=== PATIENT | male | born 1975 | race Caucasian/White ===

== ENCOUNTER 2024-05-13 09:50 | Observation (INO) ==
[2024-05-13 10:12] VITALS: BMI 28.0
[2024-05-13] MEDS ORDERED: OMNIPAQUE 350 mg/mL 100 mL BTL 100 ML ONE (10:25)
[2024-05-13] MEDS: NS 1,000 ML IV 1,000 ML IV ONE ×2 (10:29→12:57)
[2024-05-13] MEDS: ZOFRAN INJ 4 MG VIAL IVP ONE ×2 (10:29→12:56)
[2024-05-13] MEDS: MORPHINE SULFATE INJ 4 MG IVP ONE ×2 (10:30→13:02)
[2024-05-13 10:32] LABS: BASOPHILS % (AUTO) 0.3 % (0.2-1.0); EOSINOPHILS % (AUTO) 0.1 % (0.9-2.9); HEMATOCRIT 48.6 % (42.0-54.0); HEMOGLOBIN 16.7 g/dL (13.5-18.0); LYMPHOCYTES # (AUTO) 1.4 X10^3/uL (1.3-2.9); LYMPHOCYTES % (AUTO) 8.7 % (21.0-51.0); MEAN CORPUSCULAR HEMOGLOBIN 30.8 pg (27.0-34.0); MEAN CORPUSCULAR HGB CONC 34.4 g/dL (33.0-35.0); MEAN CORPUSCULAR VOLUME 89.5 fL (80.0-100.0); MEAN PLATELET VOLUME 8.5 fL (7.4-11.0); MONOCYTES # (AUTO) 0.9 x10^3/uL (0.3-0.8); MONOCYTES % (AUTO) 5.2 % (0.0-13.0); NEUTROPHILS # (AUTO) 14.2 x10^3/uL (2.2-4.8); NEUTROPHILS % (AUTO) 85.7 % (42.0-75.0); PLATELET COUNT 336 X10^3/uL (150.0-450.0); RED BLOOD COUNT 5.43 X10^6/uL (4.7-6.0); WHITE BLOOD COUNT 16.6 X10^3/uL (3.6-10.0)
[2024-05-13 10:55] LABS: ALANINE AMINOTRANSFERASE 48 Units/L (12-78); ALBUMIN 4.5 g/dL (3.4-5.0); ALKALINE PHOSPHATASE 82 Units/L (46-116); ASPARTATE AMINO TRANSFERASE 24 Units/L (15-37); BLOOD UREA NITROGEN 8 mg/dL (7-18); CALCIUM 9.6 mg/dL (8.5-10.1); CARBON DIOXIDE 31.4 mmol/L (21-32); CHLORIDE 102 mmol/L (98-107); COR NA(FOR HYPERGLY) 143 mmol/L (136-145); CREATININE 1.11 mg/dL (0.70-1.30); GLUCOSE 140 mg/dL (65-99); LIPASE 33 Units/L (16-77); POTASSIUM 3.8 mmol/L (3.5-5.1); SODIUM 142 mmol/L (136-145); TOTAL PROTEIN 8.3 g/dL (6.4-8.2); eGFR NON BLACK RACES > 60 (>60)
[2024-05-13 11:50] LABS: BILIRUBIN,URINE NEGATIVE (NEGATIVE); BLOOD/HEMOGLOBIN,URINE 2+ (NEGATIVE); GLUCOSE, URINE NEGATIVE (NEGATIVE); KETONES,URINE 2+ (NEGATIVE); LEUKOCYTE ESTERASE ,URINE NEGATIVE (NEGATIVE); NITRITES,URINE NEGATIVE (NEGATIVE); PROTEIN,URINE 1+ (NEGATIVE); UROBILINOGEN,URINE NORMAL (NORMAL)
[2024-05-13 12:01] LABS: APPEARANCE,URINE CLEAR (CLEAR); BACTERIA,URINE TRACE /HPF (NEGATIVE); COLOR,URINE STRAW (YELLOW); RBC,URINE NONE SEEN /HPF (0-3); SQUAMOUS EPITHELIAL CELL,UR NEGATIVE /HPF (NEGATIVE)
--- NOTE | 2024-05-13 12:11 | CT ---
EXAM: ABDCMEN/PELVIS WITH CON HISTORY: Pt states he started having abdominal pain Chuy, periumbilical in location, doesn't radiate, rectal bleeding started last night; COMPARISON: None. TECHNIQUE: Following the intravenous administration of iodinated contrast, spiral CT imaging was performed throu gh the abdomen and pelvis and axial, coronal, and sagittal CT images were generated. FINDINGS: There is mild basilar atelectasis and no pleural effusion. The heart size is normal. The liver is n ormal. The gallbladder, pancreas, spleen, adrenal glands are normal. Both kidneys are normal in siz e and enhancement. There are some small nonobstructing stones in the right kidney. There is no hydr onephrosis or hydroureter. The urinary bladder is normal. The prostate measures 4.3 cm in diameter. The stomach and small bowel loops are normal. The appendix is abnormally dilated and fluid-filled with diameter measuring up to 1.4 cm. There is fatty infiltration of the moser of the large bowel. This is non-specific and can be seen with autoimmune GI tract disease. There are diverticula in the sigmoid colon but no diverticulitis. IMPRESSION: 1. Acute appendicitis. 2. Question autoimmune or infectious large bowel disease. 3. Mild diverticulosis of the distal colon without diverticulitis. 4. Nonobstructing stones in the right kidney. THIS IS AN ELECTRONICALLY VERIFIED FINAL REPORT 05/13/2024 12:08 PM - Electronically signed by Jose Prajapati MD
[2024-05-13] MEDS: ZOSYN VIAL 3.375 GRAMS 3.375 G in NS 100 ML IV 100 ML IV ONE (12:49)
--- NOTE | 2024-05-13 12:49 | EKG ---
Test Reason : Dyspnea Blood Pressure : */* mmHG Vent. Rate : 52 BPM Atrial Rate : 52 BPM P-R Int : 136 ms QRS Dur : 88 ms QT Int : 450 ms P-R-T Axes : 37 19 31 degrees QTc Int : 418 ms Sinus bradycardia Minimal voltage criteria for LVH, may be normal variant ( R in aVL ) Borderline ECG No previous ECGs available Confirmed by Ziggy Mills MD ([id number]) on 05/13/2024 4:18:36 PM Referred By: Confirmed By: Ziggy Mills MD
[2024-05-13] MEDS: DILAUDID INJ IVP ONE (12:56)
[2024-05-13] MEDS: NS 1,000 ML IV 1,000 ML IV PRN (13:00)
--- NOTE | 2024-05-13 13:00 | DR.ABDMALE ---
HPI Time seen Time Seen by Provider: 05/13/24 10:19 PCP Primary Care Physician: nfd Complaint Chief Complaint Doctors Comments: 48 yo m, hx diverticulitis, no other med hx, no surg hx, c/o 12h of nixon-umb abd pain, which has migrated to RUQ & RLQ the p ast 4-5h. Pt c/o 2 episodes of vomiting, no diarrhea. Admits to a couple episodes of BRBPR. Admits to hx of hemorrhoids. Denies other complaints. Pain currently 12/04. Chief Complaint:: Pt states he started having abdominal pain Saturday, periumbilical in location, doesn't radiate, rectal bleeding started last night, vomiting started this morning and is actively vomiting during triage. Denies diarrhea. Self Treatment fo Chief Complaint: ibuprofen this morning COVID-19 Coronavirus risk:travel/contact w/high risk person: No Has patient experienced Coronavirus symptoms: No Mode of arrival Mode of Arrival: Ambulatory Timing Onset of Chief Complaint: 05/13/24 PMH PMH Past Medical History: Yes Past Medical History: Hypertension and Kidney Stones Past Medical History Comment: hx diverticulitis, eczema Past Surgical History: No Family History History of Family Medical Conditions: Yes Family Medical History: Hypertension Social History Does patient currently use any type of tobacco product: No Have you used tobacco products in the last 12 months: No Type of Tobacco Use: None Does any household member use tobacco: No Alcohol Use: None Do you use any recreational Drugs:: No Lives With: Alone Lives Where: Home Travel Risk Coronavirus risk:travel/contact w/high risk person: No Has patient experienced Coronavirus symptoms: No Infectious screening In the last 2 months have you had wt loss of >10#?: NO Have you had fever, night sweats or hemotysis?: No Have you traveled outside the country in the last 6 months?: No Isolation: Contact ROS Review of Systems Gastrointestinal/Abdominal: Abdominal Pain, Nausea and Vomiting; negative Diarrhea All Other Systems: Reviewed and Negative PE Vital Signs Vital Signs: Temp Pulse Resp BP Pulse Ox O2 Del Method 05/13/24 12:01 72 99 05/13/24 12:01 122/75 05/13/24 12:00 72 99 05/13/24 11:45 61 99 05/13/24 11:42 150/83 05/13/24 11:42 50 L 98 05/13/24 11:41 98 05/13/24 11:30 179/96 05/13/24 11:00 18 05/13/24 11:00 133/77 05/13/24 10:30 180/87 05/13/24 10:30 180/87 05/13/24 10:28 86 100 05/13/24 10:30 22 05/13/24 10:15 62 100 05/13/24 10:04 48 L 99 05/13/24 10:04 174/90 05/13/24 09:50 97.6 F 64 23 174/90 98 Room Air General Limitations: No Limitations General Appearance: Alert and In No Apparent Distress Head Head Exam: Normal Inspection Eyes Eye exam: Normal Appearance ENT ENT Exam: Normal Exam Neck Neck Exam: Normal Inspection Chest Chest Inspection: Normal Inspection Respiratory Respiratory Exam: Normal Lung Sounds Bilat Cardiovascular Cardiovascular Exam: Regular Rate and Normal Rhythm Abdominal Exam Abdominal Exam: Tenderness (RLQ), Guarding and Rebound Rectal Rectal Exam: Deferred Back Back Exam: Normal Inspection Extremeties Extremities Exam: Normal Inspection Exam: Male: Deferred Neurologic Neurological Exam: Alert and Oriented X3 Psychiatric Psychiatric Exam: Normal Affect and Normal Mood Skin Skin Exam: Warm, Dry, Intact and Normal Color ROR Labs Reviewed Laboratory Results Reviewed?: Yes 05/13/24 10:05 05/13/24 10:05 Laboratory: WBC 16.6 X10^3/uL (3.6-10.0) H 05/13/24 10:05 RBC 5.43 X10^6/uL (4.7-6.0) 05/13/24 10:05 Hgb 16.7 g/dL (13.5-18.0) 05/13/24 10:05 Hct 48.6 % (42.0-54.0) 05/13/24 10:05 MCV 89.5 fL (80.0-100.0) 05/13/24 10:05 MCH 30.8 pg (27.0-34.0) 05/13/24 10:05 MCHC 34.4 g/dL (33.0-35.0) 05/13/24 10:05 RDW 13.0 % (11.6-16.5) 05/13/24 10:05 Plt Count 336 X10^3/uL (150.0-450.0) 05/13/24 10:05 MPV 8.5 fL (7.4-11.0) 05/13/24 10:05 Neut % (Auto) 85.7 % (42.0-75.0) H 05/13/24 10:05 Lymph % (Auto) 8.7 % (21.0-51.0) L 05/13/24 10:05 Harmon % (Auto) 5.2 % (0.0-13.0) 05/13/24 10:05 Eos % (Auto) 0.1 % (0.9-2.9) L 05/13/24 10:05 Baso % (Auto) 0.3 % (0.2-1.0) 05/13/24 10:05 Neut # (Auto) 14.2 x10^3/uL (2.2-4.8) H 05/13/24 10:05 Lymph # (Auto) 1.4 X10^3/uL (1.3-2.9) 05/13/24 10:05 Harmon # (Auto) 0.9 x10^3/uL (0.3-0.8) H 05/13/24 10:05 Eos # (Auto) 0.0 x10^3/uL (0.0-0.2) 05/13/24 10:05 Baso # (Auto) 0.0 X10^3/uL (0.0-0.1) 05/13/24 10:05 Absolute Nucleated RBC 0.1 /100WBC 05/13/24 10:05 Sodium 142 mmol/L (136-145) 05/13/24 10:05 Corrected Sodium 143 mmol/L (136-145) 05/13/24 10:05 Potassium 3.8 mmol/L (3.5-5.1) 05/13/24 10:05 Chloride 102 mmol/L (98-107) 05/13/24 10:05 Carbon Dioxide 31.4 mmol/L (21-32) 05/13/24 10:05 BUN 8 mg/dL (7-18) 05/13/24 10:05 Creatinine 1.11 mg/dL (0.70-1.30) 05/13/24 10:05 Est GFR (MDRD) Af Amer > 60 (>60) 05/13/24 10:05 Est GFR (MDRD) Non-Af > 60 (>60) 05/13/24 10:05 Glucose 140 mg/dL (65-99) H 05/13/24 10:05 Calcium 9.6 mg/dL (8.5-10.1) 05/13/24 10:05 Corrected Calcium TNP 05/13/24 10:05 Total Bilirubin 1.00 mg/dL (0.2-1.0) 05/13/24 10:05 AST 24 Units/L (15-37) 05/13/24 10:05 ALT 48 Units/L (12-78) 05/13/24 10:05 Alkaline Phosphatase 82 Units/L (46-116) 05/13/24 10:05 Total Protein 8.3 g/dL (6.4-8.2) H 05/13/24 10:05 Albumin 4.5 g/dL (3.4-5.0) 05/13/24 10:05 Globulin 3.8 g/dL (2.5-4.5) 05/13/24 10:05 Albumin/Globulin Ratio 1.2 Ratio (1.1-2.1) 05/13/24 10:05 Lipase 33 Units/L (16-77) 05/13/24 10:05 Specimen Type Clean catch urine 05/13/24 11:42 Urine Color Straw (YELLOW) 05/13/24 11:42 Urine Appearance Clear (CLEAR) 05/13/24 11:42 Urine pH 7.0 (5.0 - 8.0) 05/13/24 11:42 Ur Specific [place] 1.010 (1.000-1.030) 05/13/24 11:42 Urine Protein 1+ (NEGATIVE) 05/13/24 11:42 Urine Glucose (UA) Negative (NEGATIVE) 05/13/24 11:42 Urine Ketones 2+ (NEGATIVE) 05/13/24 11:42 Urine Blood 2+ (NEGATIVE) 05/13/24 11:42 Urine Nitrite Negative (NEGATIVE) 05/13/24 11:42 Urine Bilirubin Negative (NEGATIVE) 05/13/24 11:42 Urine Urobilinogen Normal (NORMAL) 05/13/24 11:42 Ur Leukocyte Esterase Negative (NEGATIVE) 05/13/24 11:42 Urine RBC None seen /HPF (0-3) 05/13/24 11:42 Urine WBC None seen /HPF (0-5) 05/13/24 11:42 Ur Squamous Epith Cells Negative /HPF (NEGATIVE) 05/13/24 11:42 Urine Bacteria Trace /HPF (NEGATIVE) 05/13/24 11:42 Ur Culture Indicated? No/not indicated 05/13/24 11:42 Opioid Opioid Risk Tool Age (Isreal box if 16-45): No History of Preadolescent Sexual Abuse: No Total: 0 Total Score Risk Category: Low Risk Copyright: Roberto SALEH predicting aberrant behaviors Discharge Plan Diagnosis Discharge Problem: Acute appendicitis Hospital Course Hospital Course: Pt admitted to Dr Garcia, who came to ER to assess, taking pt directly from ER to surgery. Discharge Plan Patient Disposition: ADMITTED INPATIENT Condition: Stable Prescriptions: No Action Dupixent Pen 300 mg/2 mL pen injector 300 mg SUBCUT QWEEK Patient Comments: [NO ORIGINAL SIG] Health Concerns: Post Hospitalization: new medications and changes needed to prevent readmission or further decline. Pt educated and given instructions on all concerns. Plan of Treatment: Continue with present treatment and follow up plan. Pt is to keep follow up appointment as instructed and take medications as ordered. Orders to Discharge Patient Discharge Orders: Transfer (Routine); Ordered 05/13/24 Ordered By: Craig Raza Follow ups/Referrals Follow ups/Referrals: NFD,None [Primary Care Provider] - 3 days Instructions Instructions: Appendicitis Stand Alone Forms: Find Help Web Site, Post Hospital Follow Up Care
[2024-05-13] MEDS: PEPCID 20 MG VIAL IVP PRN (13:05)
[2024-05-13] MEDS: NOZIN NASAL SANITIZER TP ONE (13:08)
[2024-05-13] MEDS: VERSED IVP PRN (13:10)
[2024-05-13] MEDS: DECADRON INJ IVP PRN (13:15)
[2024-05-13] MEDS ORDERED: ULTANE GAS IN ONE (13:18)
[2024-05-13] MEDS: ZEMURON 100 MG VIAL ONE (13:18)
[2024-05-13] MEDS: DIPRIVAN VIAL 20 ML ONE (13:18)
[2024-05-13] MEDS: OFIRMEV IV 1000 MG VIAL 1,000 MG/100 ML VIAL IV ONE (13:18)
[2024-05-13] MEDS: TORADOL 30 MG VIAL ONE (13:18)
[2024-05-13] MEDS: FENTANYL VIAL INJ 100 mcg ONE (13:18)
[2024-05-13] MEDS: BRIDION ONE (13:18)
[2024-05-13] MEDS ORDERED: KETAMINE HCL ONE (13:18)
[2024-05-13] MEDS: DECADRON INJ ONE (13:18)
[2024-05-13] MEDS: VERSED ONE (13:18)
[2024-05-13] MEDS: PEPCID 20 MG VIAL ONE (13:18)
[2024-05-13] MEDS: PRECEDEX INJ VIAL ONE (13:21)
[2024-05-13] MEDS: FENTANYL VIAL INJ 100 mcg IVP PRN (13:23)
[2024-05-13] MEDS: PRECEDEX INJ VIAL IVP PRN (13:23)
[2024-05-13] MEDS: ZEMURON 100 MG VIAL IVP PRN (13:24)
[2024-05-13] MEDS: DIPRIVAN VIAL 150 ML IVP PRN (13:24)
[2024-05-13] MEDS ORDERED: XYLOCAINE 2 % (PLAIN) PRN (13:24)
[2024-05-13] MEDS: KETAMINE HCL IV PRN (13:25)
[2024-05-13] MEDS: EPHEDRINE SULFATE INJ ONE (13:34)
[2024-05-13] MEDS: EPHEDRINE SULFATE INJ IVP PRN (13:35)
[2024-05-13] MEDS ORDERED: BARHEMSYS INJ IVP PRN (13:51)
[2024-05-13] MEDS ORDERED: DILAUDID INJ IVP PRN (13:51)
[2024-05-13] MEDS ORDERED: REGLAN INJ 10 MG VIAL IVP PRN (13:51)
[2024-05-13] MEDS ORDERED: ZOFRAN INJ 4 MG VIAL IVP PRN ×2 (13:51→14:46)
[2024-05-13] MEDS ORDERED: BENADRYL INJ 50 MG VIAL IVP PRN (13:51)
--- NOTE | 2024-05-13 13:51 | RAD ---
EXAM:CHEST, 1 VIEWHISTORY:PRE-OP APPENDIX SX;COMPARISON:None available.FINDINGS:The trachea is midline. The cardiac silhouette is unremarkable . The lungs are clear without focal infiltrate or effusion. The bony thorax is unremarkable.IMPRESSION:No acute cardiopulmonary disease.THIS IS AN ELECTRONICALLY VERIFIED FINAL REPORT05/13/2024 1:47 PM - Electronically signed by Eulogio Solomon MD
[2024-05-13] MEDS: TORADOL 30 MG VIAL IVP PRN (13:59)
[2024-05-13] MEDS: OFIRMEV IV 1000 MG VIAL 1,000 MG/100 ML VIAL IV PRN (14:11)
[2024-05-13] MEDS: BRIDION IVP PRN (14:15)
[2024-05-13] MEDS: BACTROBAN TOPICAL OINT ONE (14:18)
[2024-05-13] MEDS ORDERED: NS 250 ML IV 25 ML IV PRN (14:46)
[2024-05-13] MEDS: NS 250 ML IV 25 ML IV PRN (21:37)
[2024-05-13] MEDS: ZOSYN VIAL 3.375 GRAMS 3.375 G in NS 100 ML IV 100 ML IV SCH (21:37)
[2024-05-13] MEDS: D5 1/2 NS 1,000 ML 1,000 ML IV SCH (23:20)
[2024-05-13] MEDS: DILAUDID INJ IVP PRN (23:23)
[2024-05-14 04:12] VITALS: PULSE 66; RESP 18
[2024-05-14 05:48] LABS: BASOPHILS % (AUTO) 0.2 % (0.2-1.0); HEMATOCRIT 39.6 % (42.0-54.0); LYMPHOCYTES # (AUTO) 0.9 X10^3/uL (1.3-2.9); LYMPHOCYTES % (AUTO) 6.7 % (21.0-51.0); MEAN CORPUSCULAR HEMOGLOBIN 30.4 pg (27.0-34.0); MEAN CORPUSCULAR HGB CONC 33.4 g/dL (33.0-35.0); MONOCYTES % (AUTO) 7.5 % (0.0-13.0); NEUTROPHILS # (AUTO) 11.9 x10^3/uL (2.2-4.8); NEUTROPHILS % (AUTO) 85.6 % (42.0-75.0); PLATELET COUNT 267 X10^3/uL (150.0-450.0); RED BLOOD COUNT 4.35 X10^6/uL (4.7-6.0); RED CELL DISTRIBUTION WIDTH 13.5 % (11.6-16.5); WHITE BLOOD COUNT 13.9 X10^3/uL (3.6-10.0)
[2024-05-14 05:56] LABS: ALANINE AMINOTRANSFERASE 30 Units/L (12-78); ALBUMIN 3.2 g/dL (3.4-5.0); ALKALINE PHOSPHATASE 80 Units/L (46-116); ASPARTATE AMINO TRANSFERASE 15 Units/L (15-37); BLOOD UREA NITROGEN 8 mg/dL (7-18); CALCIUM 8.2 mg/dL (8.5-10.1); CARBON DIOXIDE 29.5 mmol/L (21-32); CHLORIDE 106 mmol/L (98-107); COR CA(FOR HYPOALB) 8.8 mg/dL (8.5-10.1); COR NA(FOR HYPERGLY) 143 mmol/L (136-145); CREATININE 1.08 mg/dL (0.70-1.30); GLUCOSE 124 mg/dL (65-99); MAGNESIUM 1.7 mg/dL (2.0-2.9); POTASSIUM 3.9 mmol/L (3.5-5.1); SODIUM 142 mmol/L (136-145); TOTAL PROTEIN 6.3 g/dL (6.4-8.2); eGFR NON BLACK RACES > 60 (>60)
[2024-05-14 05:58] LABS: HEMOGLOBIN 13.2 g/dL (13.5-18.0)
[2024-05-14] MEDS ORDERED: CONSULT PHARMACY - POTASSIUM & MAGNESIUM XX SCH (07:00)
[2024-05-14 07:10] VITALS: BP 117/63; TEMP 97.9; O2SAT 97
[2024-05-14] MEDS: MAG-OX TAB PO SCH (08:15)
[2024-05-14] MEDS: K-DUR TAB 20 MEQ PO SCH (08:15)
== END 2024-05-14 12:00 | disposition home or self-care (01) ==
LOC: MED/SURG 09:50 → ER 09:50 → MED/SURG 13:05
PROVIDERS: ADMIT Surgery; ATTEND Surgery
PROC: APPYLAP (ICD-10-PCS; 2024-05-13 13:15)
DX: K35.890 Other acute appendicitis without perforation or gangrene; K57.30 Diverticulosis of large intestine without perforation or abscess without bleeding; R10.31 Right lower quadrant pain; R73.09 Other abnormal glucose; E83.42 Hypomagnesemia; Z87.898 Personal history of other specified conditions; K62.5 Hemorrhage of anus and rectum; R10.84 Generalized abdominal pain; Z29.89 Encounter for other specified prophylactic measures; R00.1 Bradycardia, unspecified